=== PATIENT | male | born 1975 | race Caucasian/White ===

== ENCOUNTER → 2018-04-08 | Outpatient (CLI) | payer OTHER ==
[2018-04-08 09:33] LABS: Basophils # (A) 0.1 k/uL (0-0.2); Basophils % (A) 1 %; Eosinophils # (A) 0.2 k/uL (0-0.7); Eosinophils % (A) 3 %; HCT 52.6 % (39.0-53.0); HGB 17.2 gm/dL (13.0-17.5); Lymphocytes # (A) 2.1 k/uL (1.0-4.8); Lymphocytes % (A) 31 %; MCH 29.4 pg (25.0-35.0); MCHC 32.8 g/dL (31.0-37.0); MCV 89.7 fL (80.0-100.0); Mean Platelet Volume 6.5; Monocytes # (A) 0.4 k/uL (0-1.0); Monocytes % (A) 6 %; Neutrophils # (A) 3.8 k/uL (1.3-7.7); Neutrophils % (A) 56 %; Platelet Count 260 k/uL (150-450); RBC 5.87 m/uL (4.30-5.90); RDW 13.6 % (11.5-15.5); WBC 6.7 k/uL (3.8-10.6)
[2018-04-08 18:35] LABS: Albumin 4.7 g/dL (3.80-4.90); Albumin/Globulin Ratio 2.24 (1.60-3.17); Anion Gap 9.9 mmol/L (4.00-12.00); Calcium 9.4 mg/dL (8.7-10.3); Carbon Dioxide 28.1 mmol/L (21.6-31.8); Globulin 2.1 g/dL (1.6-3.3); LDL Cholesterol,Calculated 179.8 mg/dL (0.0-131.0); Potassium 4.4 mmol/L (3.5-5.5); Total Bilirubin 0.7 mg/dL (0.2-1.2); Total Protein 6.8 g/dL (6.2-8.2); VLDL Calculation 57.2 mg/dL (5.00-40.00)
[2018-04-08 18:37] LABS: C Reactive Protein, High Sens 2.63 mg/L (0.000-3.000)
[2018-04-08 18:47] LABS: DHEA Sulfate 148.7 ug/dL (34.5-568.9)
[2018-04-08 18:52] LABS: Vitamin D 25 Hydroxy 27.8 ng/mL (30.0-100.0)
[2018-04-08 20:47] LABS: Hemoglobin A1C 5.5 % (4.0-6.0)
== END | disposition home or self-care (01) ==
LOC: LABWHC1 08:16
PROVIDERS: ATTEND Internal Medicine
DX: E07.9 Disorder of thyroid, unspecified (principal); E34.9 Endocrine disorder, unspecified; E55.9 Vitamin D deficiency, unspecified; E23.0 Hypopituitarism
CPT/HCPCS: 36415; 80053; 80061; 80327; 82040; 82306; 82533; 82627; 82670; 83036; 83735; 84153; 84270; 84305; 84403; 84439; 84443; 84481; 85025; 86141

== ENCOUNTER → 2021-10-28 | Outpatient (CLI) | payer OTHER ==
--- NOTE | 2021-10-28 15:34 | CT ---
EXAMINATION TYPE: CT sinus wo con DATE OF EXAM: 10/28/2021 COMPARISON: None HISTORY: Chronic sinusitis CT DLP: [id number] of the paranasal sinuses was performed in the axial and coronal planes. Bone and soft tissue settings are submitted. The paranasal sinuses demonstrate normal aeration and development. The paranasal sinuses are free of mucosal thickening or air fluid level. The osteal meatal units are patent bilaterally. The nasal septum is midline. No bony destructive changes are seen within the field of view. IMPRESSION: Normal unenhanced CT of the paranasal sinuses.
== END | disposition home or self-care (01) ==
LOC: RADCTMAIN 14:41
PROVIDERS: ATTEND Otolaryngology
DX: J32.9 Chronic sinusitis, unspecified (principal)
CPT/HCPCS: 70486

== ENCOUNTER → 2024-08-29 | Outpatient (CLI) | payer OTHER ==
[2024-08-29 15:09] LABS: Basophils # (A) 0.08 X 10*3/uL (0.00-0.10); Basophils % (A) 0.9 %; Eosinophils # (A) 0.17 X 10*3/uL (0.04-0.35); Eosinophils % (A) 1.8 %; HCT 46.3 % (39.6-50.0); HGB 15.3 g/dL (13.0-17.0); Immature Grans, Automated 0.30 %; Lymphocytes # (A) 2.75 X 10*3/uL (0.90-5.00); Lymphocytes % (A) 29.6 %; MCH 28.5 pg (27.0-32.0); MCHC 33.0 g/dL (32.0-37.0); MCV 86.4 FL (80.0-97.0); Monocytes # (A) 0.64 X 10*3/uL (0.20-1.00); Monocytes % (A) 6.9 %; NRBC Per 100 WBC 0 X 10*3/uL (0.00-0.01); Neutrophils # (A) 5.62 X 10*3/uL (1.80-7.70); Neutrophils % (A) 60.5 %; Platelet Count 291 X 10*3/uL (140-440); RBC 5.36 X 10*6/uL (4.40-5.60); RDW 14.3 % (11.5-14.5); WBC 9.29 X 10*3/uL (4.50-10.00)
[2024-08-29 15:46] LABS: ALT 40 U/L (10-49); AST 28 U/L (14-35); Albumin 4.5 g/dL (3.8-4.9); Albumin/Globulin Ratio 1.96 Ratio (1.60-3.17); Alkaline Phosphatase 73 U/L (41-126); Anion Gap 11.00 mmol/L (4.00-12.00); BUN/Creat Ratio 18.60 Ratio (12.00-20.00); Blood Urea Nitrogen 18.6 mg/dL (9.0-27.0); Calcium 9.1 mg/dL (8.7-10.3); Carbon Dioxide 26.0 mmol/L (21.6-31.8); Chloride 104 mmol/L (96-109); Cholesterol 306.00 mg/dL (0.00-200.00); Globulin 2.3 g/dL (1.6-3.3); Glucose 92 mg/dL (70-110); HDL Cholesterol 36.40 mg/dL (40.00-60.00); LDL Cholesterol,Calculated 195.8 mg/dL (0.0-131.0); Magnesium 2.1 mg/dL (1.5-2.4); Potassium 4.3 mmol/L (3.5-5.5); Sodium 141 mmol/L (135-145); Total Protein 6.8 g/dL (6.2-8.2); Triglycerides 369.00 mg/dL (0.00-149.00); VLDL Calculation 73.80 mg/dL (5.00-40.00)
[2024-08-29 15:47] LABS: Prostate Specific Antigen 2.31 ng/mL (0.000-3.500); T4, Free (Free Thyroxine) 0.94 ng/dL (0.80-1.80)
[2024-08-29 15:48] LABS: Follicle Stimulating Hormone 8.1 mIU/mL
[2024-08-29 20:52] LABS: ACTH 16.9 pg/mL (0.00-45.99)
== END | disposition home or self-care (01) ==
LOC: LABWHC1 10:49
PROVIDERS: ATTEND Internal Medicine
DX: E55.9 Vitamin D deficiency, unspecified (principal); E07.9 Disorder of thyroid, unspecified; E34.9 Endocrine disorder, unspecified; E23.0 Hypopituitarism
CPT/HCPCS: 36415; 80053; 80061; 82024; 82306; 82533; 82627; 82642; 82670; 83001; 83002; 83036; 83735; 84140; 84146; 84153; 84270; 84305; 84402; 84439; 84443; 84481; 85025; 86140